=== PATIENT | male | born 1985 | race Caucasian/White ===

== ENCOUNTER 2017-08-28 16:21 | Emergency (ER) | payer OTHER | END 2017-08-28 19:09 | disposition home or self-care (01) | LOC: FTE 16:21 | DX: S20.219A Contusion of unspecified front wall of thorax, initial encounter (principal); R07.89 Other chest pain; V49.40XA Driver injured in collision with unspecified motor vehicles in traffic accident, initial encounter | CPT/HCPCS: 71045; 93005; 99284-25 ==